=== PATIENT | male | born 1965 | race Caucasian/White ===

== ENCOUNTER 2022-04-28 11:24 | Emergency (ER) | payer BC, SELFPAY ==
[2022-04-28 11:30] VITALS: BP 148/89; PULSE 68; RESP 18; TEMP 36.8; O2SAT 98
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
[2022-04-28] MEDS: Normal Saline 1,000 ML 150 ML IV (12:14)
[2022-04-28 12:16] LABS: HCT 40.9 % (40.0-50.0); HGB 13.9 g/dL (13.5-17.5); MCH 32.5 pg (27.0-33.0); MCV 96 fL (80-95); MPV 9.9 fL (8.0-11.0); Platelet Count 185 10^3/uL (130-400); RBC 4.28 10^6/uL (4.36-5.78); RDW 12.1 % (11.8-14.1); RDW-SD 42.4 fL; WBC 8.72 10^3/uL (4.4-10.8)
[2022-04-28 12:31] LABS: ALT 29 U/L (16-63); AST 20 U/L (15-37); Alkaline Phosphatase 79 U/L (46-116); Anion Gap 7.9 mmol/L (3-11); BUN 14 mg/dL (7-18); Bilirubin, Total 0.4 mg/dL (0.2-1.0); CO2 25.1 mmol/L (21.0-32.0); CREATININE 0.9 mg/dL (0.70-1.30); Calcium 8.7 mg/dL (8.5-10.1); Chloride 108 mmol/L (98-107); Glucose 106 mg/dL (74-106); Potassium 3.7 mmol/L (3.5-5.1); Sodium 141 mmol/L (136-145); Total Protein 7.1 g/dL (6.4-8.2)
[2022-04-28] MEDS: Omnipaque 350 MG/ML 100 ML BTL IJ (13:19)
--- NOTE | 2022-04-28 15:10 | NUR.NOTE ---
Faxed referral to General Surgery for a left Pneumothorax as soon as possible. Put in hiv/aids care nurse's box for f/u.Nursing Note:
== END 2022-04-28 14:22 | disposition home or self-care (01) ==
PROVIDERS: Emergency Provider Emergency Medicine
DX: S27.0XXA Traumatic pneumothorax, initial encounter (principal); S22.32XA Fracture of one rib, left side, initial encounter for closed fracture; V19.9XXA Pedal cyclist (driver) (passenger) injured in unspecified traffic accident, initial encounter
CPT/HCPCS: 36415; 74177; 80053; 85027; 99285; 71260; 99284; J3490